=== PATIENT | male | born 1955 | race African-American/Black ===

== ENCOUNTER 2020-04-19 07:21 | Outpatient (CLI) | payer MEDICAID ==
[~2020-04-19] VITALS: Ht 177.8 cm; Wt 122.2 kg
[~2020-04-19 07:21] MED LIST: AMLO10TA4 PO; ASPI-1265 PO; BACL10TA PO; BECL8.7A7 INH; BENA20TA82 PO; CITA20TA28 PO; DIVA500T2 PO; DOCUSATE SODIUM PO; FLUT16SP2 BOTHNARES; FURO-150 PO; GABA-530 PO; GLIM4TAB7 PO; HYDR-3686 PO; IBUP-1985 PO; INSU100C10 SQ; INSU100V9 SQ; METO-477 PO; MORP15TA PO; MYLICON PO; PANT40TA54 PO; ROPI0.5T PO; SIMV-42 PO; TERA2CAP4 PO; THALITONE PO; ZOLP10TA5 PO
[2020-04-19] MEDS ORDERED: normal saline 1000ml 1,000 ML IV SCH (08:05)
[2020-04-19] MEDS ORDERED: metoprolol tartrate 1mg/ml inj IV PRN (09:05)
[2020-04-19] MEDS ORDERED: aminophylline 250mg/10ml inj. IV PRN (09:05)
[2020-04-19] MEDS ORDERED: regadenoson 0.4mg/5ml syringe IV PRN (09:05)
[2020-04-19] MEDS ORDERED: nitroGLYCERIN 0.4mg SUBLingual tab SL PRN (09:05)
[2020-04-19 09:13] VITALS: BP 128/72
[2020-04-19 09:25] VITALS: BP 129/82
[2020-04-19 09:26] VITALS: BP 132/55
[2020-04-19 09:27] VITALS: BP 131/67
[2020-04-19 09:28] VITALS: BP 127/68
[2020-04-19 09:29] VITALS: BP 121/74
== END 2020-04-19 23:59 | disposition home or self-care (01) ==
LOC: RAD 07:21
PROVIDERS: ATTEND Internal Medicine Cardiovascular Disease
DX: Z01.810 Encounter for preprocedural cardiovascular examination (principal); E11.9 Type 2 diabetes mellitus without complications
CPT/HCPCS: 78452; 82948; 93017; A9500; J2785; J7030

== ENCOUNTER 2020-09-04 07:46 | Day surgery (SDC) | payer MEDICAID ==
[~2020-09-04] VITALS: Ht 177.8 cm; Wt 130.4 kg
[2020-09-04 07:57] VITALS: BP 119/61
[2020-09-04] MEDS ORDERED: FURO-150 PO (08:23)
[2020-09-04] MEDS ORDERED: METO-477 PO (08:24)
[2020-09-04] MEDS ORDERED: GLIM4TAB PO (08:25)
[2020-09-04] MEDS ORDERED: BENA40TA73 PO (08:25)
[2020-09-04] MEDS ORDERED: INSU100C10 SQ (08:26)
[2020-09-04] MEDS ORDERED: INSU100V9 SQ (08:30)
[2020-09-04] MEDS ORDERED: fentaNYL/PF 50MCG/1 ML 2ML syringe ONE (08:31)
[2020-09-04] MEDS ORDERED: MORP15TA60 PO (08:31)
[2020-09-04] MEDS ORDERED: LIDOcaine Viscous 15ml cup ONE (08:31)
[2020-09-04] MEDS ORDERED: MIDAZolam 5mg/5ml vial ONE (08:31)
[2020-09-04] MEDS ORDERED: DIVA500T2 PO (08:32)
[2020-09-04] MEDS ORDERED: ROPI0.252 PO (08:33)
[2020-09-04] MEDS ORDERED: GABA300C PO (08:34)
[2020-09-04] MEDS ORDERED: IBUP-1985 PO (08:35)
[2020-09-04] MEDS ORDERED: HYDR-3686 PO (08:35)
[2020-09-04] MEDS ORDERED: DOCU-21 PO (08:36)
[2020-09-04] MEDS ORDERED: ZOLP10TA PO (08:38)
[2020-09-04] MEDS ORDERED: SIMV40TA PO (08:38)
[2020-09-04] MEDS ORDERED: BECL7.3A INH (08:39)
[2020-09-04] MEDS ORDERED: IPRA3AMP31 IH (08:40)
[2020-09-04] MEDS ORDERED: AMLO10TA48 PO (08:41)
[2020-09-04] MEDS ORDERED: HYGROTON (08:41)
[2020-09-04] MEDS ORDERED: OMEP20TA23 PO (08:42)
[2020-09-04] MEDS ORDERED: HYDR25SU48 RC (08:43)
[2020-09-04 09:40] VITALS: BP 88/47
[2020-09-04 09:50] VITALS: BP 91/54
[2020-09-04 10:00] VITALS: BP 87/51
[2020-09-04 10:10] VITALS: BP 112/78
== END 2020-09-04 10:30 | disposition home or self-care (01) ==
LOC: GI LAB 07:46
PROVIDERS: ATTEND Internal Medicine Gastroenterology
DX: R10.9 Unspecified abdominal pain (principal); K31.7 Polyp of stomach and duodenum; K29.60 Other gastritis without bleeding; G47.30 Sleep apnea, unspecified; J45.909 Unspecified asthma, uncomplicated; I10 Essential (primary) hypertension; G43.909 Migraine, unspecified, not intractable, without status migrainosus; E11.9 Type 2 diabetes mellitus without complications; G25.81 Restless legs syndrome; Z88.8 Allergy status to other drugs, medicaments and biological substances; Z79.4 Long term (current) use of insulin; Z79.899 Other long term (current) drug therapy; Z87.891 Personal history of nicotine dependence
CPT/HCPCS: 43239; 43251; 82948; 99152; C1773; J2250; J3010; J7040; A4620

== ENCOUNTER 2020-11-21 10:17 | Day surgery (SDC) | payer MEDICAID ==
[~2020-11-21] VITALS: Ht 177.8 cm; Wt 125.5 kg
[~2020-11-21 10:17] MED LIST changes: -AMLO10TA4 PO; +AMLO10TA48 PO; -ASPI-1265 PO; -BACL10TA PO; +BECL7.3A INH; -BECL8.7A7 INH; -BENA20TA82 PO; +BENA40TA73 PO; -CITA20TA28 PO; +DOCU-21 PO; -DOCUSATE SODIUM PO; -FLUT16SP2 BOTHNARES; -GABA-530 PO; +GABA300C PO; +GLIM4TAB PO; -GLIM4TAB7 PO; +HYDR25SU48 RC; +HYGROTON; +IPRA3AMP31 IH; -MORP15TA PO; +MORP15TA60 PO; -MYLICON PO; +OMEP20TA23 PO; -PANT40TA54 PO; +ROPI0.252 PO; -ROPI0.5T PO; -SIMV-42 PO; +SIMV40TA PO; -TERA2CAP4 PO; -THALITONE PO; +ZOLP10TA PO; -ZOLP10TA5 PO
[2020-11-21 10:36] VITALS: BP 134/81
[2020-11-21] MEDS ORDERED: AMLO2.5T2 PO (10:48)
[2020-11-21] MEDS ORDERED: FLUT16SP2 BOTHNARES (10:48)
[2020-11-21] MEDS ORDERED: fentaNYL/PF 50MCG/1 ML 2ML syringe ONE (11:41)
[2020-11-21] MEDS ORDERED: MIDAZolam 1 MG/ML 5ML VIAL ONE (11:41)
[2020-11-21 12:10] VITALS: BP 120/76
[2020-11-21 12:20] VITALS: BP 125/79
[2020-11-21 12:30] VITALS: BP 124/83
[2020-11-21 12:40] VITALS: BP 132/81
[2020-11-21 13:03] VITALS: BP 125/81
== END 2020-11-21 13:03 | disposition home or self-care (01) ==
LOC: GI LAB 10:17
PROVIDERS: ATTEND Internal Medicine Gastroenterology
DX: Z12.11 Encounter for screening for malignant neoplasm of colon (principal); K62.1 Rectal polyp; K64.8 Other hemorrhoids; E66.9 Obesity, unspecified; Z68.39 Body mass index [BMI] 39.0-39.9, adult; Z86.010 Personal history of colon polyps
CPT/HCPCS: 45385; 99152; 99153; C1773; J2250; J3010; J7040; A4620

== ENCOUNTER 2020-12-08 11:45 | Emergency (ER) | payer MEDICAID ==
[~2020-12-08] VITALS: Ht 406.4 cm; Wt 127.3 kg
[~2020-12-08 11:45] MED LIST changes: -AMLO10TA48 PO; +AMLO2.5T2 PO; +FLUT16SP2 BOTHNARES
[2020-12-08] MEDS ORDERED: morphine 4 MG/ML inj SYRINge IV ONE (12:05)
[2020-12-08] MEDS ORDERED: ondansetron/PF 4mg/2ml inj IV ONE (12:05)
[2020-12-08] MEDS ORDERED: propofol 10mg/ml 20ml vial IV ONE (13:20)
--- NOTE | 2020-12-08 15:10 | NUR ---
1455 TIME OUT AND READY FOR PROCEDURE. DR. ANDERSON AND GURJIT HERNANDEZ AT THE BEDSIDE. IV PATENT AND RT AT THE BEDSIDE. MICROSCOPIST AT BEDSIDE. [address] ANDERSON. 1459 TOTAL OF PROPOFOL 140 MG ADMINISTERED IV PUSH AND PATENT IS SEDATED WITH VSS. 1500 LEFT ARM REDUCTION COMPLETED AND SPLINT APPLIED. 1505 PORTABLE XRAY DONE AND CONFIRMED. 1510 PATIENT IS AWAKE AND TALKING, BUT DROWSY. VITAL SIGNS UNCHANGED AND O2 SAT98% WITH O2 NC AT 6 LPM.
--- NOTE | 2020-12-08 15:14 | NUR ---
REMAINDER OF PROPOFOL VIAL (60 MG) DISPOSED OF AND VERIFED BY TWO NURSES (MIRIAN AND Kishor THORNE).
--- NOTE | 2020-12-08 16:00 | NUR ---
PATIENT GIVEN CUP OF ICE WATER AND RETAINED. O2 SATS 98% ON ROOM AIR. VSS.
[2020-12-08 16:10] VITALS: BP 158/96
--- NOTE | 2020-12-08 16:12 | NUR ---
GIVEN SANDWICH AND TOLERATED WELL. DOZING ON AND OFF.
--- NOTE | 2020-12-08 16:34 | NUR ---
CALLED AND SPOKE TO SAGAR, PT BROTHER, HE WILL COME AND PICK HIM UP [phone]
== END 2020-12-08 17:00 | disposition home or self-care (01) ==
LOC: ER 11:47
DX: S53.095A Other dislocation of left radial head, initial encounter (principal); S52.182A Other fracture of upper end of left radius, initial encounter for closed fracture; M25.522 Pain in left elbow; E78.00 Pure hypercholesterolemia, unspecified; I10 Essential (primary) hypertension; J45.909 Unspecified asthma, uncomplicated; G89.29 Other chronic pain; Z88.8 Allergy status to other drugs, medicaments and biological substances; Z79.4 Long term (current) use of insulin; Z79.899 Other long term (current) drug therapy; W01.0XXA Fall on same level from slipping, tripping and stumbling without subsequent striking against object, initial encounter; Y93.01 Activity, walking, marching and hiking; Y92.89 Other specified places as the place of occurrence of the external cause; Y99.8 Other external cause status
CPT/HCPCS: 24600; 73070; 94799; 96374; 96375; 99285; J2270; J2405; 25605

== ENCOUNTER 2021-02-05 07:54 | Day surgery (SDC) | payer MEDICAID ==
[~2021-02-05] VITALS: Ht 177.8 cm; Wt 121.4 kg
[2021-02-05 08:14] VITALS: BP 141/76
[2021-02-05] MEDS ORDERED: fentaNYL/PF 50MCG/1 ML 2ML syringe ONE (08:51)
[2021-02-05] MEDS ORDERED: MIDAZolam 1 MG/ML 5ML VIAL ONE (08:52)
[2021-02-05 10:17] VITALS: BP 96/52
[2021-02-05 10:27] VITALS: BP 95/56
[2021-02-05 10:37] VITALS: BP 98/72
== END 2021-02-05 10:55 | disposition home or self-care (01) ==
LOC: GI LAB 07:54
PROVIDERS: ATTEND Internal Medicine Gastroenterology
DX: Z09 Encounter for follow-up examination after completed treatment for conditions other than malignant neoplasm (principal); K63.5 Polyp of colon; D12.5 Benign neoplasm of sigmoid colon; K64.8 Other hemorrhoids; I10 Essential (primary) hypertension; E11.9 Type 2 diabetes mellitus without complications; J45.909 Unspecified asthma, uncomplicated; Z88.8 Allergy status to other drugs, medicaments and biological substances; Z79.899 Other long term (current) drug therapy; Z79.84 Long term (current) use of oral hypoglycemic drugs; Z86.010 Personal history of colon polyps
CPT/HCPCS: 45380; 45385; 82948; 99152; C1773; J2250; J3010; J7040; A4620

== ENCOUNTER 2022-08-21 17:28 | Emergency (ER) | payer MEDICAID ==
[~2022-08-21] VITALS: Ht 177.8 cm; Wt 118.2 kg
[2022-08-21 17:47] VITALS: BP 157/76
[2022-08-21] MEDS ORDERED: IBUP-1984 PO (22:09)
[2022-08-21] MEDS ORDERED: CYCL-1 PO (22:09)
== END 2022-08-21 22:18 | disposition home or self-care (01) ==
LOC: ER 17:29
DX: M25.532 Pain in left wrist (principal); M54.50 Low back pain, unspecified; I10 Essential (primary) hypertension; E78.00 Pure hypercholesterolemia, unspecified; J45.909 Unspecified asthma, uncomplicated; Z88.8 Allergy status to other drugs, medicaments and biological substances; V89.2XXA Person injured in unspecified motor-vehicle accident, traffic, initial encounter; Y93.89 Activity, other specified; Y92.89 Other specified places as the place of occurrence of the external cause; Y99.8 Other external cause status
CPT/HCPCS: 73110; 99283; L0172